=== PATIENT | male | born 1960 | race Caucasian/White ===

== ENCOUNTER 2020-05-26 12:50 | Emergency (ER) | payer BC ==
[2020-05-26 12:56] VITALS: TEMP 98
--- NOTE | 2020-05-26 14:20 | ED ---
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 He does present from his primary care office. States he began having symptoms of Covid on the which included nausea, diarrhea, cough and shortness of breath. He was tested on the and found to be positive. He spoke with his PCP who recommended that he receive Bam infusion because he is on immunosuppressive medications. Reports that his symptoms have been improving. She denies any chest pain, lower extremity swelling, hemoptysis, fevers or chills. No other alleviating, precipitating or modifying factors - Related Data Allergies Allergy/AdvReac Type Severity Reaction Status Date / Time No Known Allergies Allergy Verified 05/26/20 12:56 Review of Systems ROS Statement: Those systems with pertinent positive or pertinent negative responses have been documented in the HPI. ROS Other: All systems not noted in ROS Statement are negative. Past Medical History Past Medical History: Hypertension History of Any Multi-Drug Resistant Organisms: None Reported Past Surgical History: No Surgical Hx Reported Past Psychological History: No Psychological Hx Reported Smoking Status: Never smoker Past Alcohol Use History: Rare Past Drug Use History: None Reported General Exam Limitations: no limitations Course Vital Signs 05/26/20 12:53 Temperature 98.0 F Pulse Rate 102 H Respiratory 17 Rate Blood Pressure 140/95 O2 Sat by Pulse 96 Oximetry Medical Decision Making - Medical Decision Making Upon arrival patient was placed into room 22. A thorough history and physical exam was performed. IV is established. Patient does meet criteria for BAM infusion. This is ordered from pharmacy. Patient will be infused at this time. Patient will be discharged home to follow up with his primary care doctor in 2- 4 days. Return if the patient has any new or worsening symptoms. Patient agreed to this he was discharged home in stable condition Disposition Clinical Impression: COVID-19 Disposition: HOME SELF-CARE Condition: Stable Instructions (If sedation given, give patient instructions): Coronavirus Disease 2019 (COVID-19) Additional Instructions: You received BAM infusion. Follow up with your PCP in 2-4 days. Return to the ED for any new or worsening symptoms. Is patient prescribed a controlled substance at d/c from ED?: No Referrals: Marshall Arango MD [Primary Care Provider] - 1-2 days Time of Disposition: 14:20
[2020-05-26] MEDS ORDERED: BAMLANIVIMAB 700 MG in SODIUM CHLORIDE 0.9% 50 ML IVPB ONE (14:45)
[2020-05-26 16:30] VITALS: BP 136/90; PULSE 84; RESP 18
== END 2020-05-26 16:32 | disposition home or self-care (01) ==
LOC: EC 12:50
DX: U07.1 COVID-19 (principal); I10 Essential (primary) hypertension
CPT/HCPCS: 99281; 96374; Q0239

== ENCOUNTER → 2023-07-30 | Outpatient (CLI) | payer MEDICARE ==
--- NOTE | 2023-07-30 16:52 | CA ---
Transthoracic Echo Report Name: Elijah Ruiz Age: 63 Gender: M : 1960 Exam Date: 07/30/2023 13:35 Exam Location: [facility] Ht (in): 72 Wt (lb): 225 Ordering Physician: Jeffery Momin MD Attending/Referring Phys: Merrill LLANOS [employer] Yolie Pacheco RDCS Procedure CPT: Indications: R00.2 palpitations Cardiac Hx: Technical Quality: Technically difficult study Contrast 1: Definity Total Dose (mL): 2 Contrast 2: Total Dose (mL): MEASUREMENTS (Male / Female) Normal Values 2D ECHO LV Diastolic Diameter PLAX 3.0 cm 4.2 - 5.9 / 3.9 - 5.3 cm LV Systolic Diameter PLAX 2.1 cm IVS Diastolic Thickness 1.6 cm 0.6 - 1.0 / 0.6 - 0.9 cm LVPW Diastolic Thickness 1.4 cm 0.6 - 1.0 / 0.6 - 0.9 cm LV Relative Wall Thickness 1.0 RV Internal Dim ED PLAX 4.3 cm LA Volume 40.8 cm??? 18 - 58 / 22 - 52 cm??? LA Volume Index 17.7 cm???/m??? 16 - 28 cm???/m??? M-MODE Aortic Root Diameter MM 3.9 cm LA Systolic Diameter MM 3.5 cm LA Ao Ratio MM 0.9 AV Cusp Separation MM 2.4 cm DOPPLER AV Peak Velocity 109.8 cm/s AV Peak Gradient 4.8 mmHg AV Mean Velocity 80.5 cm/s AV Mean Gradient 2.8 mmHg AV Velocity Time Integral 21.1 cm LVOT Peak Velocity 98.2 cm/s LVOT Peak Gradient 3.9 mmHg LVOT Velocity Time Integral 18.4 cm MV Area PHT 3.2 cm??? Mitral E Point Velocity 64.3 cm/s Mitral A Point Velocity 92.3 cm/s Mitral E to A Ratio 0.7 MV Deceleration Time 236.0 ms MV E' Velocity 6.0 cm/s Mitral E to MV E' Ratio 10.7 TR Peak Velocity 257.1 cm/s TR Peak Gradient 26.4 mmHg Right Ventricular Systolic Press 30.5 mmHg FINDINGS Left Ventricle Moderately increased left ventricular wall thickness. Left ventricular cavity size normal. Normal left ventricular systolic function with no obvious regional wall motion abnormalities. Left ventricular ejection fraction is estimated at 55-60 %. Right Ventricle Right ventricular dilatation. Right ventricular systolic pressure within normal limits. Right Atrium Mild right atrial dilatation. Left Atrium Normal left atrial size. Mitral Valve Structurally normal mitral valve. Mild mitral annular calcification. Mild mitral regurgitation. Aortic Valve Trileaflet aortic valve. No aortic valve stenosis or regurgitation. Tricuspid Valve Structurally normal tricuspid valve. Mild tricuspid regurgitation. Pulmonic Valve Structurally normal pulmonic valve. Trace pulmonic regurgitation. Pericardium No pericardial effusion. Aorta Mild aortic dilatation at the level of the sinuses of valsalva (root). CONCLUSIONS Left ventricular ejection fraction is estimated at 55-60 %. No obvious regional wall motion abnormality Mild concentric LVH Mild RV dilatation with normal systolic function. Mild RA dilatation Mild MR Previewed by: Dr Rojelio Dockery (Electronically Signed) Final Date: 30 Jul 2023 16:51
== END | disposition home or self-care (01) ==
LOC: RADECHMAIN 13:33
PROVIDERS: ATTEND Family Medicine
DX: I34.0 Nonrheumatic mitral (valve) insufficiency (principal); I51.7 Cardiomegaly; R00.2 Palpitations
CPT/HCPCS: 93306

== ENCOUNTER 2023-10-12 03:10 | Inpatient (IN) | payer MEDICARE ==
[2023-10-12] MEDS ORDERED: ASPIRIN 325 MG TAB ONE (03:12)
[2023-10-12] MEDS ORDERED: NITROGLYCERIN SL TABS 0.4 MG TAB SUBLINGUAL ONE (03:12)
[2023-10-12] MEDS ORDERED: ASPIRIN 81 MG ONE ×2 (03:14→06:09)
[2023-10-12] MEDS ORDERED: HEPARIN SODIUM 1,000 UN/ML (10ML VL) ONE (03:18)
[2023-10-12] MEDS ORDERED: fentaNYL (PF) 50 MCG/ML 2 ML AMP ONE (03:51)
[2023-10-12] MEDS ORDERED: LIDOCAINE 1% INJ 10MG/ML (30 ML VIAL-PF) ONE (03:57)
[2023-10-12] MEDS ORDERED: VERAPAMIL 2.5 MG/ML 4 ML VIAL ONE (03:57)
[2023-10-12] MEDS ORDERED: SODIUM CHLORIDE 0.9% 1,000 ML BAG ONE ×2 (03:57→06:00)
[2023-10-12] MEDS ORDERED: CLOPIDOGREL 75 MG TAB ONE ×2 (04:11→06:09)
[2023-10-12] MEDS ORDERED: MIDAZOLAM 2 MG/2 ML VIAL ONE (04:34)
[2023-10-12] MEDS: IOPAMIDOL-370 200ML BTL INJ ONE (04:40)
[2023-10-12] MEDS ORDERED: ISOSORBIDE MONONITRATE ER 30 MG TAB.ER.24H PO ONE (06:09)
[2023-10-12] MEDS ORDERED: METOPROLOL TARTRATE 25 MG TAB ONE ×3 (06:10→20:59)
[2023-10-12] MEDS ORDERED: lisinopriL 10 MG TAB ONE ×2 (06:10→21:00)
[2023-10-12] MEDS ORDERED: HEPARIN SOD,PORK IN 0.45% NACL 250 ML IV ONE (07:37)
[2023-10-12] MEDS ORDERED: ACETAMINOPHEN TAB 325 MG TAB ONE (14:05)
[2023-10-13] MEDS ORDERED: HEPARIN SOD,PORK IN 0.45% NACL 250 ML IV ONE (02:42)
[2023-10-13] MEDS ORDERED: METOPROLOL TARTRATE 50 MG TAB ONE (09:21)
[2023-10-13] MEDS ORDERED: ATORVASTATIN 80 MG TAB ONE (09:21)
[2023-10-13] MEDS ORDERED: ASPIRIN 81 MG ONE (09:21)
[2023-10-13] MEDS ORDERED: ISOSORBIDE MONONITRATE ER 30 MG TAB.ER.24H PO ONE (09:21)
[2023-10-13] MEDS ORDERED: lisinopriL 10 MG TAB ONE ×2 (09:22→20:36)
[2023-10-13] MEDS ORDERED: CLOPIDOGREL 75 MG TAB ONE (09:23)
[2023-10-14] MEDS ORDERED: ISOSORBIDE MONONITRATE ER 30 MG TAB.ER.24H PO ONE (09:07)
[2023-10-14] MEDS ORDERED: METOPROLOL TARTRATE 50 MG TAB ONE (09:07)
[2023-10-14] MEDS ORDERED: ASPIRIN 81 MG ONE (09:07)
[2023-10-14] MEDS ORDERED: lisinopriL 10 MG TAB ONE (09:08)
[2023-10-14] MEDS ORDERED: CLOPIDOGREL 75 MG TAB ONE (09:08)
--- NOTE | 2023-10-31 17:07 | XR ---
EXAMINATION TYPE: XR chest 1V DATE OF EXAM: 10/31/2023 1:25 PM COMPARISON: None, please note PACS Production downtime occurred during the radiologist interpretation of these images with limited priors/reports. TECHNIQUE: XR chest 1V Frontal view of the chest. CLINICAL INDICATION:Male, 63 years old with history of STEMI; FINDINGS: Lungs/Pleura: There is no evidence of pleural effusion, focal consolidation, or pneumothorax. Elevat ion of the right hemidiaphragm. Pulmonary vascularity: Central pulmonary vascular congestion. Heart/mediastinum: Cardiomediastinal silhouette is unremarkable. Musculoskeletal: No acute osseous pathology. IMPRESSION: Central pulmonary vascular congestion.
== END 2023-10-14 13:05 | disposition home or self-care (01) | DRG 322 ==
LOC: 2SICU 03:10
PROVIDERS: ADMIT Internal Medicine; ATTEND Internal Medicine
PROC: B2111ZZ Fluoroscopy of Multiple Coronary Arteries using Low Osmolar Contrast (ICD-10-PCS; 2023-10-12)
PROC: 027034Z Dilation of Coronary Artery, One Artery with Drug-eluting Intraluminal Device, Percutaneous Approach (ICD-10-PCS; principal; 2023-10-12 04:40)
PROC: 4A023N7 Measurement of Cardiac Sampling and Pressure, Left Heart, Percutaneous Approach (ICD-10-PCS; 2023-10-12 04:40)
PROC: B240ZZ3 Ultrasonography of Single Coronary Artery, Intravascular (ICD-10-PCS; 2023-10-12 04:40)
DX: I21.19 ST elevation (STEMI) myocardial infarction involving other coronary artery of inferior wall (principal); I25.10 Atherosclerotic heart disease of native coronary artery without angina pectoris; I10 Essential (primary) hypertension; E78.5 Hyperlipidemia, unspecified; R74.01 Elevation of levels of liver transaminase levels
CPT/HCPCS: 71045; 92978; 93308; 93458; 96374; 99292